=== PATIENT | female | born 1955 | race Caucasian/White ===

== ENCOUNTER 2017-05-07 21:15 | Emergency (ER) | payer OTHER ==
--- NOTE | 2017-05-07 22:49 | ED Physician Documentation ---
History of Present Illness - Stated complaint Stated Complaint: FEMALE /FEVER - Chief complaint Chief Complaint: General - History obtained from History obtained from: Patient - History of Present Illness Timing: How many weeks ago (2) Improved by: no ameliorating factors Worsened by: BM - Additonal information Additional information: c/o 2 weeks low abdominal pain that is worse with BM. Today she has had fatigue and low-grade fevers, Tmax 100.3. She has a h/o ulcerative proctitis for which she is on [place] Review of Systems Constitutional: reports: Fever. denies: Chills, Sweats Cardiac: reports: Reviewed and negative Respiratory: reports: Reviewed and negative GI: reports: Abdominal Pain. denies: Nausea, Vomiting, Constipation, Diarrhea, Bloody / black stool : denies: Dysuria PD PAST MEDICAL HISTORY - Past Medical History Past Medical History: Yes Other Past Medical History: Ucerative Prostitis - Past Surgical History Past Surgical History: Yes - Present Medications Home Medications: Ambulatory Orders Medication Instructions Recorded Confirmed Prednisone 10 mg PO DAILY #1 tab.ds.pk 05/08/17 - Allergies Allergies/Adverse Reactions: Allergies Allergy/AdvReac Type Severity Reaction Status Date / Time COUGH MED AdvReac Unknown Uncoded 05/07/17 21:46 - Social History Does the pt smoke?: No Smoking Status: Never smoker Does the pt drink ETOH?: Yes Does the pt have substance abuse?: No - Immunizations Immunizations are current?: Yes - POLST Patient has POLST: No PD ED PE NORMAL - Vitals Vital signs reviewed: Yes - General General: Alert and oriented X 3, No acute distress, Well developed/nourished - Cardiac Cardiac: RRR, No murmur - Respiratory Respiratory: No respiratory distress, Clear bilaterally - Abdomen Abdomen: Normal bowel sounds, Soft, Non tender - Back Back: No CVA TTP - Derm Derm: Normal color, Warm and dry - Extremities Extremities: No edema Results - Vitals Vitals: Vital Signs - 24 hr 05/07/17 05/08/17 05/08/17 21:37 01:15 03:07 Temperature 97.9 C H Heart Rate 108 H 89 84 Respiratory 17 18 16 Rate Blood Pressure 135/77 H 129/69 124/66 O2 Saturation 99 97 97 Oxygen O2 Source Room air - Labs Labs: Laboratory Tests 05/07/17 05/07/17 05/08/17 23:29 23:29 00:25 WBC 11.0 H RBC 3.77 L Hgb 10.5 L Hct 31.4 L MCV 83.3 MCH 27.8 MCHC 33.3 RDW 13.3 Plt Count 339 MPV 7.2 L Neut # 7.6 H Lymph # 1.6 [place] # 1.6 H Eos # 0.2 Baso # 0.1 Absolute Nucleated RBC 0.00 Nucleated RBCs 0.0 Sodium 136 Potassium 3.4 L Chloride 100 L Carbon Dioxide 27 Anion Gap 9.0 BUN 10 Creatinine 0.8 Estimated GFR (MDRD) 72 L Glucose 122 H Calcium 8.2 L Total Bilirubin 0.3 AST 16 ALT 18 Alkaline Phosphatase 75 Total Protein 6.2 L Albumin 2.7 L Globulin 3.5 Albumin/Globulin Ratio 0.8 L Lipase 47 Urine Color YELLOW Urine Clarity CLEAR Urine pH 6.0 Ur Specific [place] <=1.005 Urine Protein TRACE Urine Glucose (UA) NEGATIVE Urine Ketones 40 H Urine Occult Blood NEGATIVE Urine Nitrite NEGATIVE Urine Bilirubin NEGATIVE Urine Urobilinogen 0.2 (NORMAL) Ur Leukocyte Esterase NEGATIVE Ur Microscopic Review NOT INDICATED Urine Culture Comments NOT INDICATED - Rads (name of study) CT A/P Radiology: Prelim report reviewed, See rad report PD MEDICAL DECISION MAKING - ED course Complexity details: reviewed results, re-evaluated patient, considered differential, d/w patient Departure - Departure Disposition: 01 Home, Self Care Clinical Impression: Inflammatory bowel disease (ulcerative colitis) Condition: Good Instructions: ED Colitis Ulcerative Follow-Up: Day Woodall PA [Primary Care Provider] - (Call in the morning to arrange for next available appointment) Prescriptions: Prednisone 10 mg PO DAILY #1 tab.ds.pk Discharge Date/Time: 05/08/17 03:08
[2017-05-07 23:39] LABS: BASOPHILS # (AUTO) 0.1 10^3/uL (0.0-0.1); BASOPHILS % (AUTO) 0.5 %; EOSINOPHILS # (AUTO) 0.2 10^3/uL (0.0-0.7); EOSINOPHILS % (AUTO) 1.4 %; HCT - HEMATOCRIT 31.4 % (37.0-47.0); HGB - HEMOGLOBIN 10.5 g/dL (12.0-16.0); LYMPHOCYTES # (AUTO) 1.6 10^3/uL (1.5-3.5); LYMPHOCYTES % (AUTO) 14.4 %; MEAN CORPUSCULAR HEMOGLOBIN 27.8 pg (27.0-31.0); MEAN CORPUSCULAR HGB CONC 33.3 g/dL (32.0-36.0); MEAN CORPUSCULAR VOLUME 83.3 fL (81.0-99.0); MEAN PLATELET VOLUME 7.2 fL (7.9-10.8); MONOCYTES # (AUTO) 1.6 10^3/uL (0.0-1.0); MONOCYTES % (AUTO) 14.7 %; NEUTROPHILS # (AUTO) 7.6 10^3/uL (1.5-6.6); RED BLOOD COUNT 3.77 10^6/uL (4.20-5.40); RED CELL DISTRIBUTION WIDTH 13.3 % (12.0-15.0)
[2017-05-07 23:50] LABS: ALBUMIN/GLOBULIN RATIO 0.8 (1.0-2.2); BILIRUBIN,TOTAL 0.3 mg/dL (0.2-1.0); CALCIUM 8.2 mg/dL (8.5-10.3); CREATININE 0.8 mg/dL (0.4-1.0); POTASSIUM 3.4 mmol/L (3.5-5.0); TOTAL PROTEIN 6.2 g/dL (6.7-8.2)
[2017-05-08 00:32] LABS: BILIRUBIN,URINE NEGATIVE (NEGATIVE)
[2017-05-08 00:34] LABS: UA CHARGE (STRIP ONLY) YES; UR CULTURE IF IND NOT INDICATED
[2017-05-08] MEDS ORDERED: IOPAMIDOL-300 100 ML VIAL IVP ONE (00:56)
--- NOTE | 2017-05-08 02:01 | CT Preliminary Report ---
Exam: CT Abdomen/Pelvis W/ IMPRESSION: 1. Abnormal long segment inflammation or wall thickening involving the distal transverse, left and si gmoid colon and rectum. No complication such as perforation or obstruction or abscess. Findings are m ost consistent with an infectious or inflammatory colitis or inflammatory bowel disease. Correlate cl inically. 2. Normal appendix. [facility] SITE ID: [id number]
--- NOTE | 2017-05-08 02:12 | CT Report ---
EXAM: CT ABDOMEN AND PELVIS EXAM DATE: 05/08/2017 12:31 AM. CLINICAL HISTORY: Rectal pain and fever. COMPARISONS: None. TECHNIQUE: Routine helical CT imaging was performed through the abdomen and pelvis. IV contrast: 100 mL Isovue-300. Enteric contrast: No. Reconstructions: Coronal and sagittal. In accordance with CT protocol optimization, one or more of the following dose reduction techniques w ere utilized for this exam: automated exposure control, adjustment of mA and/or KV based on patient s ize, or use of iterative reconstructive technique. FINDINGS: Lung Bases: Unremarkable. Liver: 1.2 cm low-density structure in the right liver lobe on image 18. No intrahepatic bile duct di lation noted. Gallbladder/Bile Ducts: Unremarkable. Spleen: Normal. Pancreas: Normal. Adrenal Glands: Normal. Kidneys: Normal. No masses or hydronephrosis. Peritoneal Cavity/Bowel: Long segment of inflammation and wall thickening involving the distal transv erse, left, sigmoid and rectum. Adjacent inflammation is noted. No dilated bowel to suggest obstructi on. Normal small bowel. Normal appendix. Multiple prominent left mid and left lower quadrant mesenter ic nodes with the largest measuring 0.9 cm on image 5, 29. No bulky retroperitoneal, mesenteric or pe lvic adenopathy is noted. No pneumoperitoneum, ascites or pneumatosis. Pelvic Organs: Normal uterus, adnexa and bladder. Pelvic inflammation due to sigmoid and rectal abnor malities as described above. Vasculature: No aneurysms or other significant abnormality. Bones: Dense sclerosis is present at the L4-L5 and L2-L3 vertebral bodies adjacent to the disk space. Irregular cystic changes are present in the superior endplate of L3. Advanced degenerative disk dise ase most notable at the L3-L4, L4-L5 and L5-S1 level. Other: None. IMPRESSION: 1. Abnormal long segment inflammation with wall thickening involving the distal transverse, left and sigmoid colon and rectum. No complication such as perforation or obstruction or abscess. Findings are most consistent with an infectious or inflammatory colitis or inflammatory bowel disease (Ulcerative Colitis). Correlate clinically. 2. Normal appendix. [facility] Referring Provider Line: [phone] SITE ID: [id number]
[2017-05-08] MEDS ORDERED: predniSONE 20 MG TABLET PO STA (02:53)
[2017-05-08] MEDS ORDERED: predniSONE 20 MG TABLET ONE (02:57)
[2017-05-08 03:08] VITALS: BP 124/66
== END 2017-05-08 03:08 | disposition home or self-care (01) ==
LOC: ED 21:15
DX: K58.9 Irritable bowel syndrome, unspecified (principal); K51.20 Ulcerative (chronic) proctitis without complications; Z79.52 Long term (current) use of systemic steroids
CPT/HCPCS: 36415; 74177; 80053; 81001; 81003; 83690; 85025; 87086; 99283

== ENCOUNTER 2017-05-11 05:30 | Outpatient (CLI) | payer OTHER | END 2017-05-11 05:31 | disposition home or self-care (01) | LOC: LAB.R 05:30 | PROVIDERS: ATTEND Internal Medicine Gastroenterology | DX: K51.211 Ulcerative (chronic) proctitis with rectal bleeding (principal) | CPT/HCPCS: 87493 ==

== ENCOUNTER 2017-05-21 09:00 | Outpatient (CLI) | payer OTHER | END 2017-05-21 09:01 | disposition home or self-care (01) | LOC: LAB.F 09:00 | PROVIDERS: ATTEND Internal Medicine Gastroenterology | DX: K51.211 Ulcerative (chronic) proctitis with rectal bleeding (principal) | CPT/HCPCS: 87493 ==

== ENCOUNTER 2017-05-25 11:27 | Outpatient (CLI) | payer OTHER ==
[2017-05-25 19:38] LABS: BASOPHILS % (AUTO) 0.2 %; HCT - HEMATOCRIT 24.9 % (37.0-47.0); HGB - HEMOGLOBIN 8.1 g/dL (12.0-16.0); LYMPHOCYTES # (AUTO) 0.6 10^3/uL (1.5-3.5); LYMPHOCYTES % (AUTO) 11.5 %; MEAN CORPUSCULAR HGB CONC 32.7 g/dL (32.0-36.0); MEAN CORPUSCULAR VOLUME 82.5 fL (81.0-99.0); MEAN PLATELET VOLUME 6.7 fL (7.9-10.8); MONOCYTES # (AUTO) 0.2 10^3/uL (0.0-1.0); MONOCYTES % (AUTO) 4.1 %; NEUTROPHILS # (AUTO) 4.5 10^3/uL (1.5-6.6); NEUTROPHILS % (AUTO) 84.2 %; NUCLEATED RED BLOOD CELLS AUTO 0.2 /100WBC; RED BLOOD COUNT 3.01 10^6/uL (4.20-5.40); RED CELL DISTRIBUTION WIDTH 15.3 % (12.0-15.0); UNCORRECTED WHITE BLOOD COUNT 5.3 x10^3/uL; WHITE BLOOD COUNT 5.3 x10^3/uL (4.8-10.8)
[2017-05-25 20:10] LABS: BILIRUBIN,TOTAL 0.5 mg/dL (0.2-1.0); BUN - BLOOD UREA NITROGEN 16 mg/dL (6-20); CREATININE 0.7 mg/dL (0.4-1.0); GFR - MDRD 85 (>89); TOTAL PROTEIN 5.6 g/dL (6.7-8.2)
[2017-05-25 20:12] LABS: BILIRUBIN,DIRECT < 0.1 mg/dL (0.1-0.5)
== END 2017-05-25 11:28 | disposition home or self-care (01) ==
LOC: LAB.F 11:27
PROVIDERS: ATTEND Internal Medicine Gastroenterology
DX: D64.9 Anemia, unspecified (principal); K51.50 Left sided colitis without complications
CPT/HCPCS: 36415; 80076; 82565; 84520; 85025; 86140

== ENCOUNTER 2017-06-22 14:28 | Outpatient (CLI) | payer OTHER ==
[2017-06-22 18:01] LABS: BASOPHILS # (AUTO) 0.1 10^3/uL (0.0-0.1); BASOPHILS % (AUTO) 0.8 %; EOSINOPHILS # (AUTO) 0.1 10^3/uL (0.0-0.7); EOSINOPHILS % (AUTO) 0.5 %; HGB - HEMOGLOBIN 9.7 g/dL (12.0-16.0); LYMPHOCYTES % (AUTO) 10.1 %; MEAN CORPUSCULAR HEMOGLOBIN 26.2 pg (27.0-31.0); MEAN CORPUSCULAR HGB CONC 31.4 g/dL (32.0-36.0); MEAN CORPUSCULAR VOLUME 83.4 fL (81.0-99.0); MEAN PLATELET VOLUME 8.7 fL (7.9-10.8); MONOCYTES # (AUTO) 0.6 10^3/uL (0.0-1.0); MONOCYTES % (AUTO) 6.1 %; NEUTROPHILS % (AUTO) 82.5 %; RED BLOOD COUNT 3.71 10^6/uL (4.20-5.40); UNCORRECTED WHITE BLOOD COUNT 9.7 x10^3/uL; WHITE BLOOD COUNT 9.7 x10^3/uL (4.8-10.8)
[2017-06-22 18:51] LABS: BILIRUBIN,TOTAL 0.4 mg/dL (0.2-1.0); BUN - BLOOD UREA NITROGEN 13 mg/dL (6-20); CREATININE 0.7 mg/dL (0.4-1.0); GFR - MDRD 84 (>89); TOTAL PROTEIN 5.9 g/dL (6.7-8.2)
[2017-06-22 19:05] LABS: BILIRUBIN,DIRECT < 0.1 mg/dL (0.1-0.5)
== END 2017-06-22 14:29 | disposition home or self-care (01) ==
LOC: LAB.F 14:28
PROVIDERS: ATTEND Internal Medicine Gastroenterology
DX: D64.9 Anemia, unspecified (principal)
CPT/HCPCS: 36415; 80076; 82565; 84520; 85025; 86140

== ENCOUNTER 2017-11-06 12:00 | Outpatient (CLI) | payer OTHER ==
[2017-11-06] MEDS ORDERED: IOPAMIDOL-300 100 ML VIAL ONE (12:30)
[2017-11-06] MEDS ORDERED: IOPAMIDOL-300 50 ML VIAL ONE (12:30)
[2017-11-06 12:34] LABS: CREATININE 0.6 mg/dL (0.4-1.0)
[2017-11-06] MEDS ORDERED: IOPAMIDOL-300 100 ML VIAL IVP ONE (13:45)
[2017-11-06] MEDS ORDERED: IOPAMIDOL-300 50 ML VIAL PO ONE (13:45)
--- NOTE | 2017-11-06 17:17 | CT Report ---
DATE OF SERVICE: 11/06/2017 CT ABDOMEN AND PELVIS WITH CONTRAST: 11/06/2017 CLINICAL INDICATION: Right lower quadrant pain. COMPARISON: 05/08/2017 TECHNIQUE: Axial CT images of the abdomen and pelvis were obtained with 100 mL Isovue 300 intravenou sly as well as oral contrast. In accordance with CT protocol optimization, one or more of the following dose reduction techniques w ere utilized for this exam: Automated exposure control, adjustment of mA and/or KV based on patient size, or use of iterative reconstructive technique. FINDINGS Limited evaluation of the lung bases is unremarkable. ABDOMEN: The liver, spleen, pancreas, kidneys, and adrenal glands are unremarkable. No bowel dilata tion, free gas, or free fluid is present. No abdominal adenopathy is seen. The gallbladder is not distended. PELVIS: The appendix is dilated, measuring 1.5 cm in diameter, and demonstrates periappendiceal infl ammation, compatible with acute appendicitis. There is no evidence of perforation or abscess formation. No fr ee pelvic fluid or adenopathy is seen. Osseous structures demonstrate degenerative changes and a small bone island in the right sacrum, stab le. IMPRESSION: Acute appendicitis. Results called to Helen Woodall PA-C on 11/06/2017 at 1350 hours. TD: 11/06/2017 18:05
== END 2017-11-06 12:01 | disposition home or self-care (01) ==
LOC: LAB 12:00
PROVIDERS: ATTEND Physician Assistant
DX: K35.80 Unspecified acute appendicitis (principal)
CPT/HCPCS: 36415; 74177; 82565; 84520

== ENCOUNTER 2017-11-06 16:11 | Day surgery (SDC) | payer OTHER ==
--- NOTE | 2017-11-06 16:13 | ED Physician Documentation ---
PD HPI ABD PAIN - Stated complaint Stated Complaint: ABD PAIN - History obtained from History obtained from: Patient, Family - History of Present Illness Timing - onset: How many days ago (2) Timing - duration: Days (2) Timing - details: Gradual onset Pain level max: 6 Pain level now: 6 Quality: Aching, Dull. No: Cramping, Sharp Location: RLQ Radiation: No: Chest, , Lower back, Left flank, Left shoulder, Right flank, Right shoulder, Upper back Improved by: Other (nothing) Worsened by: Palpation Associated symptoms: No: Fever, Nausea, Vomiting, Hematemesis, Diarrhea, Constipation, Melena, Hematochezia Recently seen: Clinic (seen in clinic today and had a CT scan + appendicitis) - Additional information Additional information: States last ate 2 hours ago. Review of Systems Ten Systems: 10 systems reviewed and negative Constitutional: denies: Fever, Chills Nose: denies: Rhinorrhea / runny nose, Congestion Cardiac: denies: Chest pain / pressure Respiratory: denies: Cough GI: denies: Abdominal Pain : denies: Dysuria Skin: denies: Rash Musculoskeletal: denies: Neck pain, Back pain Neurologic: denies: Headache PD PAST MEDICAL HISTORY - Past Medical History Past Medical History: Yes Endocrine/Autoimmune: HyPOthyroidism GI: Ulcerative colitis - Past Surgical History Past Surgical History: Yes - Present Medications Home Medications: Ambulatory Orders Medication Instructions Recorded Confirmed Prednisone 10 mg PO DAILY #1 tab.ds.pk 05/08/17 - Allergies Allergies/Adverse Reactions: Allergies Allergy/AdvReac Type Severity Reaction Status Date / Time COUGH MED AdvReac Unknown Uncoded 05/07/17 21:46 - Social History Does the pt smoke?: No Smoking Status: Never smoker Does the pt drink ETOH?: Yes Does the pt have substance abuse?: No - Immunizations Immunizations are current?: Yes - POLST Patient has POLST: No PD ED PE NORMAL - Vitals Vital signs reviewed: Yes - General General: Alert and oriented X 3, No acute distress, Well developed/nourished - HEENT HEENT: Moist mucous membranes - Neck Neck: Supple, no meningeal sign - Cardiac Cardiac: RRR, Strong equal pulses - Respiratory Respiratory: No respiratory distress, Clear bilaterally - Abdomen Abdomen: Soft, Non distended, Other (TTP over the RLQ. tenderness over mcburney' s point. ) - Derm Derm: Warm and dry - Extremities Extremities: No edema, No calf tenderness / cord - Neuro Neuro: Alert and oriented X 3 - Psych Psych: Normal mood, Normal affect Results - Vitals Vitals: Vital Signs - 24 hr 11/06/17 11/06/17 11/06/17 16:14 20:49 20:55 Temperature 37.0 C Heart Rate 83 Respiratory 18 Rate Blood Pressure 152/97 H Blood Pressure [Right Brachial artery] O2 Saturation 99 97 97 11/06/17 11/06/17 11/06/17 21:00 21:05 21:10 Temperature Heart Rate Respiratory Rate Blood Pressure Blood Pressure [Right Brachial artery] O2 Saturation 97 95 99 11/06/17 11/06/17 11/06/17 21:15 21:17 21:20 Temperature 36.3 C L 36.5 C Heart Rate 83 75 Respiratory 18 15 Rate Blood Pressure Blood Pressure 129/72 120/71 [Right Brachial artery] O2 Saturation 97 97 100 11/06/17 11/06/17 21:50 22:10 Temperature 36.7 C 36.7 C Heart Rate 60 64 Respiratory 16 16 Rate Blood Pressure Blood Pressure 121/71 121/64 [Right Brachial artery] O2 Saturation 98 98 Oxygen O2 Source Room air - Labs Labs: Laboratory Tests 11/06/17 11/06/17 11/06/17 16:30 17:30 17:30 WBC 9.3 RBC 4.85 Hgb 14.0 Hct 41.6 MCV 85.9 MCH 28.8 MCHC 33.6 RDW 16.6 H Plt Count 236 MPV 8.9 Neut # 5.7 Lymph # 2.4 [place] # 0.9 Eos # 0.3 Baso # 0.1 Absolute Nucleated RBC 0.00 Nucleated RBC % 0.0 Sodium 136 Potassium 3.6 Chloride 100 L Carbon Dioxide 27 Anion Gap 9.0 BUN 15 Creatinine 0.6 Estimated GFR (MDRD) 101 Glucose 96 Calcium 9.3 Total Bilirubin 0.5 AST 41 ALT 43 Alkaline Phosphatase 103 Total Protein 7.3 Albumin 3.8 Globulin 3.5 Albumin/Globulin Ratio 1.1 Lipase 500 H Urine Color YELLOW Urine Clarity HAZY Urine pH 6.0 Ur Specific [place] <=1.005 Urine Protein NEGATIVE Urine Glucose (UA) NEGATIVE Urine Ketones NEGATIVE Urine Occult Blood LARGE H Urine Nitrite NEGATIVE Urine Bilirubin NEGATIVE Urine Urobilinogen 0.2 (NORMAL) Ur Leukocyte Esterase NEGATIVE Urine RBC 6-10 H Urine WBC 0-3 Ur Squamous Epith Cells NONE SEEN Urine Bacteria None Seen Ur Microscopic Review INDICATED Urine Culture Comments NOT INDICATED PD MEDICAL DECISION MAKING - ED course Complexity details: reviewed old records, reviewed results, re-evaluated patient , considered differential, d/w patient, d/w family, d/w collection systems consultant (Dr. Lombardi 1630 and will take to OR. ) ED course: Patient is a 62-year-old female presents to the emergency department with an acute appendicitis diagnosed on outpatient CT scan earlier today. Discussed the case with 1630 - Dr. Lombardi, general surgery will take the patient to the OR. Patient was given IV Zosyn while in the emergency department as well as IV fluids. This document was made in part using voice recognition software. While efforts are made to proofread this document, sound alike and grammatical errors may occur. Departure - Departure Disposition: ED Transfer to [facility] Clinical Impression: Appendicitis Qualifiers: Appendicitis type: acute appendicitis Acute appendicitis type: with localized peritonitis Qualified Code(s): K35.3 - Acute appendicitis with localized peritonitis Condition: Good Discharge Date/Time: 11/06/17 19:10
[2017-11-06] MEDS ORDERED: PIPERACILLIN/TAZOBACTAM 3.375 GM in SODIUM CHLORIDE 0.9% MINIBAG 100 ML IV STA (16:36)
[2017-11-06] MEDS ORDERED: SODIUM CHLORIDE 0.9% 1,000 ML IV ONE (16:36)
[2017-11-06 16:50] LABS: BILIRUBIN,URINE NEGATIVE (NEGATIVE); GLUCOSE, URINE (UA) NEGATIVE (NEGATIVE); KETONES,URINE (UA) NEGATIVE (NEGATIVE); LEUKOCYTE ESTERASE, URINE NEGATIVE (NEGATIVE); NITRITE,URINE NEGATIVE (NEGATIVE); OCCULT BLOOD,URINE LARGE (NEGATIVE); PROTEIN,URINE NEGATIVE (NEGATIVE); UROBILINOGEN,URINE 0.2 (NORMAL) E.U./dL (NORMAL)
[2017-11-06 16:51] LABS: CLARITY,URINE HAZY (CLEAR)
[2017-11-06 17:17] LABS: BACTERIA,URINE None Seen /HPF (None Seen); SQUAMOUS EPITHELIAL CELL,UR NONE SEEN (<= Few)
[2017-11-06 17:43] LABS: BASOPHILS # (AUTO) 0.1 10^3/uL (0.0-0.1); BASOPHILS % (AUTO) 0.9 %; EOSINOPHILS # (AUTO) 0.3 10^3/uL (0.0-0.7); EOSINOPHILS % (AUTO) 3.4 %; LYMPHOCYTES # (AUTO) 2.4 10^3/uL (1.5-3.5); LYMPHOCYTES % (AUTO) 25.7 %; MEAN CORPUSCULAR HEMOGLOBIN 28.8 pg (27.0-31.0); MEAN CORPUSCULAR HGB CONC 33.6 g/dL (32.0-36.0); MEAN CORPUSCULAR VOLUME 85.9 fL (81.0-99.0); MEAN PLATELET VOLUME 8.9 fL (7.9-10.8); MONOCYTES # (AUTO) 0.9 10^3/uL (0.0-1.0); MONOCYTES % (AUTO) 9.4 %; NEUTROPHILS # (AUTO) 5.7 10^3/uL (1.5-6.6); NEUTROPHILS % (AUTO) 60.6 %; PLT - PLATELET COUNT 236 10^3/uL (130-450); RED BLOOD COUNT 4.85 10^6/uL (4.20-5.40); RED CELL DISTRIBUTION WIDTH 16.6 % (12.0-15.0); WHITE BLOOD COUNT 9.3 x10^3/uL (4.8-10.8)
[2017-11-06 18:01] LABS: ALBUMIN 3.8 g/dL (3.2-5.5); ALBUMIN/GLOBULIN RATIO 1.1 (1.0-2.2); BILIRUBIN,TOTAL 0.5 mg/dL (0.2-1.0); CALCIUM 9.3 mg/dL (8.5-10.3); CREATININE 0.6 mg/dL (0.4-1.0); TOTAL PROTEIN 7.3 g/dL (6.7-8.2)
--- NOTE | 2017-11-06 19:33 | CONSULTATION NOTE ---
Referring Provider Name of Referring Provider:: Dr. Frederic Sosa/Day Woodall Consult Date: 11/06/17 Chief Complaint - Chief Complaint Chief Complaint: RLQ pain found on CT scan to correspond to enlarged appendix History of Present Illness - Admitted From Admitted From:: Emergency Department - History Obtained From Records Reviewed: Yes History obtained from: Patient and Exam Limitations: None - History of Present Illness HPI Comment/Other: This is a very pleasant 62-year-old female sent into the emergency department by Day Woodall for evaluation and treatment of an enlarged appendix accompanied by right lower quadrant pain. The patient's history is significant for the diagnosis of ulcerative colitis as an adult. She has shown some reticence to medical therapy and thinks there should be a dietary therapy that will make her ulcerative colitis better. Her symptoms started about 3 days ago with the onset of some bloody, mucousy diarrhea and then with some right lower quadrant pain. She attributed this to her ulcerative colitis. When this did not resolve and the pain got worse she went in to see Day Woodall who ordered the CT scan. There is been no nausea or vomiting. In fact 2 hours per week prior to coming to the emergency department she ate some yogurt and some turkey. Obviously, she is not anorectic. Although the patient does have some pain suggesting appendicitis she does not have the constellation of symptoms. This diagnosis is made primarily via CT scan. History - Past Medical History Endocrine/Autoimmune: reports: HyPOthyroidism GI: reports: Ulcerative colitis MRSA Hx?: No - POLST Patient has POLST: No Meds/Allgy - Home Medications Home Medications: Ambulatory Orders Medication Instructions Recorded Confirmed Prednisone 10 mg PO DAILY #1 tab.ds.pk 05/08/17 - Allergies Allergies/Adverse Reactions: Allergies Allergy/AdvReac Type Severity Reaction Status Date / Time COUGH MED AdvReac Unknown Uncoded 05/07/17 21:46 Review of Systems - Constitutional Constitutional: denies: Fatigue, Fever, Chills, Malaise, Weakness, Poor appetite , Diaphoresis, Night sweats - Cardiovascular Cariovascular: denies: Irregular heart rate, Palpitations, Chest pain, Lightheadedness, Syncope - Respiratory Respiratory: denies: Cough, Sputum production, Wheezing, Hemoptysis - Gastrointestinal Gastrointestinal: reports: Abdominal pain, Diarrhea, Rectal bleeding. denies: Nausea, Vomiting, Bile emesis, Daniel blood emesis - Genitourinary Genitourinary: denies: Dysuria - Neurological Neurological: denies: General weakness, Focal weakness - Psychiatric Psychiatric: denies: Depression, Anxiety, Suicidal Exam - Vital Signs Reviewed Vital Signs: Yes Vital Signs: Vital Signs x48h Temp Pulse Resp BP Pulse Ox 11/06/17 16:14 37.0 C 83 18 152/97 H 99 - Physical Exam General Appearance: positive: No acute distress Eyes Bilateral: positive: No lid inflammation, Conjunctivae nml, No scleral icterus ENT: positive: Dry mucous membranes Neck: positive: Trachea midline Respiratory: positive: Chest non-tender, No respiratory distress, Breath sounds nml Cardiovascular: positive: Regular rate & rhythm Abdomen: positive: Nml bowel sounds, Tenderness (In right lower quadrant.) Skin: positive: Color nml Extremities: positive: Non-tender, Full ROM, Nml appearance Neurologic/Psychiatric: positive: Oriented x3 Conclusion/Plan - Diagnosis Diagnosis: Acute appendicitis based primarily on CT findings. - Plan Plan: Laparoscopic appendectomy, possible open appendectomy. The indications, procedure, alternatives including no surgery, possible risks including infection (deep or superficial), bleeding requiring transfusion (with all of its risks), and were fully explained to the patient and all questions answered. I also explained the pathophysiology. I explained that following the surgery I did not want her lifting anything over 15 pounds for 6 weeks to allow for optimal healing and to decrease the likelihood that a hernia would occur. All questions were fully answered. Verbal and written consent was obtained. The patient, in preparation for surgery will be nothing by mouth, and receive 3.375 g of Zosyn with induction. I asked her to contact me with any surgical questions and her concerns and she stated that she would. I asked her to let me know if there is any way we can make her say at [facility] more comfortable and she stated that she would let me know. 45 minutes of [id number] time spent with the patient, over 80% in discussion and coordination of her care Leo disclaimer: This document was created in part using voice recognition technology. Because of the inherent limitations of the system ([employer] user manual states that the licensee understands that speech recognition is a statistical process and that recognition errors are inherent in the process), occasional same sounding word substitutions and grammatical errors do occur and persist despite proofreading. Please read this document for context. - Lab Results Lab results reviewed: Yes Fish Bones: 11/06/17 17:30 11/06/17 17:30 - Diagnostic Imaging Results Diagnostic Imaging Results: positive: Prelim report reviewed, Final report reviewed, Read independently
[2017-11-06] MEDS ORDERED: BUPIVACAINE 0.5% PF 30 ML VIAL SUBQ ONE ×2 (19:38)
[2017-11-06] MEDS ORDERED: ONDANSETRON 4 MG/2 ML VIAL IVP ONE (20:00)
[2017-11-06] MEDS ORDERED: PROPOFOL 200 MG/20 ML VIAL IVP ONE (20:00)
[2017-11-06] MEDS ORDERED: MIDAZOLAM 2 MG/2 ML VIAL IVP ONE (20:00)
[2017-11-06] MEDS ORDERED: fentaNYL 100 MCG/2 ML VIAL IVP ONE (20:00)
[2017-11-06] MEDS ORDERED: ACETAMINOPHEN 1,000 MG/100 ML 100 ML IV ONE (20:00)
[2017-11-06] MEDS ORDERED: ROCURONIUM 50 MG/5 ML VIAL IVP ONE (20:00)
[2017-11-06] MEDS ORDERED: SUCCINYLCHOLINE 200 MG/10 ML VIAL IVP ONE (20:00)
[2017-11-06] MEDS ORDERED: LIDOCAINE-MPF 2% 5 ML VIAL IM ONE (20:00)
[2017-11-06] MEDS ORDERED: ePHEDrine 50 MG/ML VIAL IVP ONE (20:00)
[2017-11-06] MEDS ORDERED: DEXAMETHASONE 4 MG/ML VIAL IVP ONE (20:00)
[2017-11-06] MEDS ORDERED: GLYCOPYRROLATE 1 MG/5 ML VIAL IVP ONE (20:00)
[2017-11-06] MEDS ORDERED: NEOSTIGMINE 1 MG/1 ML 10 ML MDV IVP ONE (20:00)
[2017-11-06] MEDS ORDERED: oxyCODONE/ACET 5/325 Prepack 4 PO STA (20:46)
[2017-11-06] MEDS ORDERED: LACTATED RINGERS 1,000 ML IV ONE (20:54)
--- NOTE | 2017-11-06 21:50 | OPERATIVE REPORT ---
Operative Report - General Procedure Date: 11/06/17 Planned Procedure: Laparoscopic appendectomy, possible open appendectomy Pre-Op Diagnosis: Acute appendicitis on CT scan Procedure Performed: Laparoscopic appendectomy Post Op Diagnosis: Acute nonperforated appendicitis - Procedure Note Primary Surgeon: Christofer Lombardi MD Anesthesia Provider: Madan Woodall Anesthesia Technique: General ET tube, Local (30 mL's of half percent Marcaine) IV Fluids (mL): 800 Estimated Blood Loss (mL): 5 Complications: None. - Other Other Information/Narrative: OPERATIVE DESCRIPTION/REPORT: After verbal and written informed consent was obtained detailing the risks of infection, bleeding requiring transfusion with its risks, and , and after I met with the patient confirming the surgery and the site of the surgery, the patient was brought to the operative suite and placed supine on the operating table. Great care was taken to avoid pressure points to prevent pressure necrosis or nerve injury. Monitoring devices were applied along with TEDs and pneumatic compressive stockings (to prevent DVT). The patient received preoperative antibiotics for surgical prophylaxis. Juan Woodall sedated and anethetized the patient for the entire procedure. The patient was prepped and draped in the usual sterile manner. With the patient draped my initials were clearly visible. A "time in" then confirmed that the patient was identified with 3 identifiers (name, date and medical record number), the history and physical was in the chart, the signed consent confirming the procedure was in the chart, the patient was in the correct position, the aforementioned prophylactic measures were in place or given, we had the correct personnel and equipment to complete the procedure and that anesthesia, surgery and nursing were given an opportunuty to express any concerns. With the agreement of everyone in the room, we proceeded with the operation. A 1.5 cm umbilical midline incision was made. The fascia was then cleared of subcutaneous tissue using a tonsil clamp. A 2 cm incision was then made in the fascia gaining entry into the abdominal cavity without incident. A 12 mm blunt tipped balloon tipped Daisy port was placed into the abdomen and the balloon inflated to keep it in place. The pneumoperitoneum was then established using carbon dioxide insufflation to a steady state pressure of 12 mmHg. Two additional 5 mm ports were placed in the midline above and below the umbilicus. The patient was then rotated slightly to their left and slightly head down ( Trendelenberg). The appendix was clearly identified and noted to be thickened and clearly consistent with acute appendicitis. It was a simple matter to grasp the end of the appendix and lift it revealing the base of the appendix where it was draining into the cecum. The base of the appendix and mesentery were then stapled and transected using a laparoscopic vascular stapler. Visualization of the staple line revealed absolutely no bleeding or leak of bowel contents. The appendix was then place into an endopouch for the remainder of the case. The patient was then rotated to lie flat. The fascia and skin were then injected with the 30 mL of % marcaine for pain control. The insufflation was released and the ports removed. The fascial defect was then approximated using two 0-Vicryl figure-8 sutures. The skin incisions were approximated with 4-0 Monocryl in a subcuticular fashion. The surgical prep was removed, the skin was prepped with benzoin and steristrips were applied. A dressing was applied. At this point a time out was performed that confirmed that all the counts were correct, the procedure that was performed, the blood loss, the urine output, the IV fluids administered, and the patients condition. Having tolerated the procedure well, the patient was subsequently extubated and taken to recovery room in good and stable condition. As of note the colon and small bowel as well as liver and gallbladder appeared normal. [employer] disclaimer: This document was created in part using voice recognition technology. Because of the inherent limitations of the system ([employer] Dict[employer] user manual states that the licensee understands that speech recognition is a statistical process and that recognition errors are inherent in the process), occasional same sounding word substitutions and grammatical errors do occur and persist despite proofreading. Please read this document for context.
[2017-11-06] MEDS ORDERED: ONDANSETRON 4 MG/2 ML VIAL ONE (21:59)
[2017-11-06 22:32] VITALS: BP 121/64
== END 2017-11-06 17:21 | disposition home or self-care (01) ==
LOC: ED 16:11 → SDS 17:20
PROVIDERS: ATTEND Surgery
PROC: 0DTJ4ZZ Resection of Appendix, Percutaneous Endoscopic Approach (ICD-10-PCS; principal; 2017-11-06 19:00)
DX: K35.80 Unspecified acute appendicitis (principal); E03.9 Hypothyroidism, unspecified
CPT/HCPCS: 36415; 44970; 74177; 80053; 81001; 82565; 83690; 84520; 85025; 96361; 96365; 99284; J0131; J7120; Q9967; 81003; 87086

== ENCOUNTER 2024-01-01 09:41 | Outpatient (CLI) | payer MEDICARE, OTHER ==
[2024-01-01 14:37] LABS: BILIRUBIN,URINE NEGATIVE (NEGATIVE); GLUCOSE, URINE (UA) NEGATIVE (NEGATIVE); KETONES,URINE (UA) NEGATIVE (NEGATIVE); LEUKOCYTE ESTERASE, URINE NEGATIVE (NEGATIVE); NITRITE,URINE NEGATIVE (NEGATIVE); OCCULT BLOOD,URINE NEGATIVE (NEGATIVE); PH,URINE 6.5 PH (5.0-7.5); PROTEIN,URINE NEGATIVE (NEGATIVE); UROBILINOGEN,URINE 0.2 (NORMAL) E.U./dL (NORMAL)
[2024-01-01 14:38] LABS: CLARITY,URINE CLEAR (CLEAR)
[2024-01-01 14:47] LABS: RBC,URINE 0-5 /HPF (0-5); SQUAMOUS EPITHELIAL CELL,UR NONE SEEN (<= Few); WBC,URINE 0-3 /HPF (0-5)
[2024-01-01 14:48] LABS: BACTERIA,URINE None Seen /HPF (None Seen)
== END 2024-01-01 09:42 | disposition home or self-care (01) ==
LOC: LAB.S 09:41
PROVIDERS: ATTEND Urology
DX: C65.1 Malignant neoplasm of right renal pelvis (principal)
CPT/HCPCS: 81001; 87086

== ENCOUNTER 2024-07-17 11:45 | Outpatient (CLI) | payer MEDICARE, OTHER ==
[2024-07-17 12:05] LABS: BASOPHILS # (AUTO) 0.1 10^3/uL (0.0-0.1); BASOPHILS % (AUTO) 0.8 %; EOSINOPHILS # (AUTO) 0.3 10^3/uL (0.0-0.7); HCT - HEMATOCRIT 39.9 % (37.0-47.0); LYMPHOCYTES # (AUTO) 1.8 10^3/uL (1.5-3.5); LYMPHOCYTES % (AUTO) 23.5 %; MEAN CORPUSCULAR HEMOGLOBIN 29.7 pg (27.0-31.0); MEAN CORPUSCULAR HGB CONC 32.6 g/dL (32.0-36.0); MEAN CORPUSCULAR VOLUME 91.3 fL (81.0-99.0); MEAN PLATELET VOLUME 10.1 fL (7.9-10.8); MONOCYTES # (AUTO) 0.7 10^3/uL (0.0-1.0); MONOCYTES % (AUTO) 8.9 %; NEUTROPHILS # (AUTO) 4.8 10^3/uL (1.5-6.6); NEUTROPHILS % (AUTO) 62.4 %; PLT - PLATELET COUNT 184 10^3/uL (130-450); RED BLOOD COUNT 4.37 10^6/uL (4.20-5.40); RED CELL DISTRIBUTION WIDTH 15.5 % (12.0-15.0); WHITE BLOOD COUNT 7.7 x10^3/uL (4.8-10.8)
[2024-07-17 12:17] LABS: ALBUMIN 3.7 g/dL (3.2-5.5); ALBUMIN/GLOBULIN RATIO 1.5 (1.0-2.2); ALKALINE PHOSPHATASE 65 IU/L (42-121); ALT ALANINE AMINOTRANSFERASE 12 IU/L (10-60); AST ASPARTATE AMINOTRANSFERASE 17 IU/L (10-42); BILIRUBIN,TOTAL 0.4 mg/dL (0.2-1.0); BUN - BLOOD UREA NITROGEN 18 mg/dL (6-20); CALCIUM 8.9 mg/dL (8.5-10.3); CARBON DIOXIDE - CO2 30 mmol/L (21-32); CHLORIDE 102 mmol/L (101-111); CREATININE 0.9 mg/dL (0.6-1.3); CRP - C-REACTIVE PROTEIN < 0.5 mg/dL (<0.5); GFR - MDRD 62 (>89); GLUCOSE 102 mg/dL (74-104); POTASSIUM 4.1 mmol/L (3.5-4.5); SODIUM 137 mmol/L (135-145); TOTAL PROTEIN 6.2 g/dL (6.4-8.9)
== END 2024-07-17 11:46 | disposition home or self-care (01) ==
LOC: LAB 11:45
PROVIDERS: ATTEND Internal Medicine Gastroenterology
DX: K51.30 Ulcerative (chronic) rectosigmoiditis without complications (principal)
CPT/HCPCS: 36415; 80053; 85025; 86140

== ENCOUNTER 2024-07-21 10:40 | Outpatient (CLI) | payer MEDICARE, OTHER ==
[2024-07-21 15:29] LABS: THYROID STIMULATING HORMONE 0.93 uIU/mL (0.34-5.60)
== END 2024-07-21 10:41 | disposition home or self-care (01) ==
LOC: LAB.S 10:40
PROVIDERS: ATTEND Internal Medicine Endocrinology, Diabetes & Metabolism
DX: E03.9 Hypothyroidism, unspecified (principal)
CPT/HCPCS: 36415; 84439; 84443; 84481